=== PATIENT | male | born 1955 | race Caucasian/White ===

== ENCOUNTER → 2017-09-23 | Day surgery (SDC) | payer OTHER ==
--- NOTE | 2017-09-20 17:45 | Diagnostic Imaging Report ---
PROCEDURE: Frontal and lateral views of the chest. COMPARISON: None. INDICATIONS: PRE-OP FINDINGS: Lines/tubes: None. Lungs: The lungs are well inflated and clear. There is no evidence of pneumonia or pulmonary edema. Pleura: There is no pleural effusion or pneumothorax. Heart and mediastinum: The heart and the mediastinum are normal. Bones: No acute bony abnormality. Fusion hardware is noted in the lower cervical spine. IMPRESSION: 1. No acute cardiopulmonary abnormalities. César De Guzman M.D. Dictated by: César De Guzman M.D. on 09/20/2017 at 17:47 Electronically approved by: César De Guzman M.D. on 09/20/2017 at 17:47
[~2017-09-23] MED LIST: ACETAMINOPHEN 1000 MG/100 ML 100 ML IV ONE; ASPIR 8181 MG PO; BUPIVACAINE HCL 0.5% INJ 30 ML VIAL INJ ONE; CARVEDILOL3.125 MG PO; CLINDAMYCIN PHOS 900MG/ D5W 50 50 ML IV ONE; DEXAMETHASONE SOD PHOS INJ 4 MG/ML VIAL ONE; FENTANYL CITRATE/PF 100MCG/2 ML INJ ONE; GABAPENTIN300 MG PO; LIDOCAINE HCL 2% LOCAL INJ 5 ML SDV VIAL INJ ONE; LOSARTAN POTAS100 MG PO; METFORMIN HCL500 MG PO; MIDAZOLAM HCL 2 MG/2 ML VIAL ONE; MULTI-VITAMIN1 EACH PO; NEOSTIGMINE 1 MG/ML 10ML VIAL ONE; OMEGA 3 1,0001 EACH PO; ONDANSETRON HCL INJ 2 MG/ML VIAL ONE; PLAVIX75 MG PO; PROPOFOL IV EMULSION 10 MG/ML 20 ML VIAL ONE; RANITIDINE HCL300 M1 PO; SEVOFLURANE INHAL SOLN 250 ML PEN BTL ONE; SIMVASTATIN20 MG PO; VIT D3 PO; ZINC PO
--- OUTSIDE RECORDS SUMMARY | 2017-09-23 06:29 | XMS REPORT ---
Author Author [facility] Address Unknown Phone Unavailable Care Team Providers [employer] Name Role Phone MIRTA CAGLE Unavailable Unavailable Problems This patient has no known problems. Allergies, Adverse Reactions, Alerts This patient has no known allergies or adverse reactions. Medications This patient has no known medications. Results Test Description Test Time Test Comments Text Results Atomic Results Result Comments CHEST 2 VIEWS [place] [address] Patient Name: OMERO BAUTISTA JR MR #: [id number] : 1955 Age/Sex: 62/M Req #: [id number] Adm Physician: Ordered by: MIRTA CAGLE DPM Report #: [id number] Location: OR Room/Bed: Procedure: [id number] DX/CHEST 2 VIEWS Exam Date: 09/20/17 Exam Time: 1545 REPORT STATUS: Signed PROCEDURE: Frontal and lateral views of the chest. COMPARISON: None. INDICATIONS: PRE-OP FINDINGS: Lines/tubes: None. Lungs: The lungs are well inflated and clear. There is no evidence of pneumonia or pulmonary edema. Pleura: There is no pleural effusion or pneumothorax. Heart and mediastinum: The heart and the mediastinum are normal. Bones: No acute bony abnormality. Fusion hardware is noted in the lower cervical spine. IMPRESSION: 1. No acute cardiopulmonary abnormalities. Desirae Gross M.D. Dictated by: Desirae Gross M.D. on 09/20/2017 at 17:47 Electronically approved by: Desirae Gross M.D. on 2017 at 17:47 Dictated By: DESIRAE GROSS MD 46 Transcribed By: MACK on 1746 COPY TO: MIRTA CAGLE DPM
[2017-09-23 07:43] LABS: ANION GAP 14.6 mmol/L (8-16); BLOOD UREA NITROGEN 17 mg/dL (7-26); BUN/CREATININE RATIO 21 (6-25); CALCIUM 9.2 mg/dL (8.4-10.2); CARBON DIOXIDE 22 mmol/L (22-29); CHLORIDE 103 mmol/L (98-107); EST GLOMERULAR FILTRATION RATE > 60 ML/MIN (60-); GLUCOSE 141 mg/dL (74-118); POTASSIUM 4.6 mmol/L (3.5-5.1); SODIUM 135 mmol/L (136-145)
--- NOTE | 2017-09-23 14:42 | Operative Report ---
DATE OF PROCEDURE: September 23, 2017 PREOPERATIVE DIAGNOSES 1. Hammertoe with bony exostosis, 5th digit, left foot. 2. Ganglion cyst, dorsal aspect of the left foot. ANESTHESIA: General endotracheal. HEMOSTASIS: A left thigh tourniquet at 350 mmHg. PROCEDURES 1. Arthroplasty with exostectomy, 5th digit, left foot. 2. Excision of ganglion cyst with dorsal bone remodeling, left foot. PROCEDURE IN DETAIL: The patient was taken to the operating room in a mildly sedated state, and placed upon the operating table in the supine position. Following induction of general anesthetic, the left lower extremity was elevated to 60 degrees to exsanguinate before inflating the pneumatic thigh tourniquet to 350 mmHg for good hemostasis. The left lower extremity was placed on the operating table prior to performing the procedure. PROCEDURE #1: Arthroplasty, 5th digit, left foot. A linear longitudinal incision was made across the dorsal aspect of the proximal interphalangeal joint of the left foot. The incision was deepened via sharp and blunt dissection down to the level of the dorsal capsular structure. Care was taken to identify and retract all vital structures encountered. The head of the proximal phalanx was noted below the surgical site. A moderate V-osteotomy was made using the oscillating saw. The area was irrigated with copious amounts of sterile saline solution. Deep closure was 3-0 Vicryl. Skin closure with 4-0 nylon. Attention was then directed to the distal aspect of the DIPJ bone spur was noted. Two converging semi-elliptical incisions were made along the lateral most border of the distal phalanx with the digits of the left foot. The elliptical skin margin was removed. The underlying bone was noted to be significantly prominent. The area was at first debrided and then exostectomy completely removed with the oscillating saw. The area was irrigated with copious amounts of sterile saline solution. Deep closure was 3-0 Vicryl and skin closure with 4-0 nylon. The proximal phalangeal area was closed with 3-0 Vicryl and 4-0 nylon. These areas were then blocked with 0.5% Marcaine and . Attention was then directed to the dorsal aspect of the foot where a large ganglion cyst was noted overlying the dorsal proximal metatarsal cuneiform joint. Incision was placed and the dissection was carried deep to the extensor hallucis longus tendon where as an extension of the joint a large ganglion cyst was noted. The shift was removed, and the underlying bony prominence was noted to still be creating a prominence. Therefore, an osteotome and mallet was used to remodel that area of the bone removing significant bony exostosis. The area was irrigated with copious amounts of sterile saline solution. Deep closure was 3-0 Vicryl and subcutaneous closure with 4-0 Vicryl. Skin closure with 4-0 Prolene. The areas of surgery were blocked with 0.5% Marcaine and Decadron [place]. A human tissue allograft was placed in the void created by the removal of the underlying ganglion cyst to facilitate healing. Release of the pneumatic thigh tourniquet showed a normal hyperemic flush to all digits of the left foot. Patient left the operating room with vital signs stable and in apparent satisfactory condition, having tolerated both anesthetic and procedure very well. Job#: [id number] ZEUS
== END | disposition home or self-care (01) ==
LOC: OR 06:27
PROVIDERS: ATTEND Podiatrist Foot Surgery
DX: M20.42 Other hammer toe(s) (acquired), left foot (principal); M67.472 Ganglion, left ankle and foot; M89.9 Disorder of bone, unspecified; Z01.810 Encounter for preprocedural cardiovascular examination; E11.9 Type 2 diabetes mellitus without complications; Z79.84 Long term (current) use of oral hypoglycemic drugs; I10 Essential (primary) hypertension; I25.10 Atherosclerotic heart disease of native coronary artery without angina pectoris; G47.33 Obstructive sleep apnea (adult) (pediatric); Z79.02 Long term (current) use of antithrombotics/antiplatelets; Z79.82 Long term (current) use of aspirin; Z88.1 Allergy status to other antibiotic agents; Z88.0 Allergy status to penicillin
CPT/HCPCS: 28090; 28285; 36415; 71046; 80048; 82948; 93005; J1100; J2001; J2250; J2405; J2710; Q4100; 76001